=== PATIENT | female | born 1985 | race Caucasian/White ===

== ENCOUNTER 2019-06-04 16:04 | Emergency (ER) | payer OTHER ==
[2019-06-04 17:00] VITALS: BP 153/94; PULSE 79; RESP 18; TEMP 98.2
[2019-06-04] MEDS ORDERED: DIPH,PERTUS(ACELL)TETVAC-LF 0.5 ML VIAL IM ONE (17:42)
[2019-06-04] MEDS ORDERED: KETOROLAC 30 MG/ML 1 ML VIAL IM STA (17:42)
--- NOTE | 2019-06-04 17:42 | ED ---
Head Injury HPI - General Chief complaint: Head Injury Stated complaint: [facility] - head injury Time Seen by Provider: 06/04/19 17:09 Source: patient Mode of arrival: ambulatory Limitations: no limitations - History of Present Illness Initial comments: 34-year-old female presenting for head injury. Patient states she was at work yesterday when she had her head on a machine. She denies machinery falling on her she denies jumping up and hitting the machine. She denies loss of consciousness. Denies anticoagulation use she states she has a small abrasion near her left eye. Patient states she was told by work she had a comfort evaluation. Patient states she has had a slight headache denies dizziness denies vomiting. Denies any neck pain. Patient denies any other areas of injury. Remaining review of systems negative upon arrival patient appears well - Related Data Home Medications Medication Instructions Recorded Confirmed Avaine 1 tab PO DAILY 06/04/19 06/04/19 Cephalexin [Keflex] 500 mg PO Q12HR 06/04/19 06/04/19 Allergies/Adverse reactions: Allergies Allergy/AdvReac Type Severity Reaction Status Date / Time No Known Allergies Allergy Verified 06/04/19 17:22 Review of Systems ROS Statement: Those systems with pertinent positive or pertinent negative responses have been documented in the HPI. ROS Other: All systems not noted in ROS Statement are negative. Past Medical History Past Medical History: No Reported History History of Any Multi-Drug Resistant Organisms: None Reported Past Surgical History: No Surgical Hx Reported Past Psychological History: Anxiety Smoking Status: Current every day smoker Past Alcohol Use History: Occasional Past Drug Use History: None Reported General Exam - General Exam Comments Initial Comments: General: The patient is awake and alert, in no distress, and does not appear acutely ill. Eye: +3 mm pupils are equal, round and reactive to light, extra-ocular movements are intact. No nystagmus. There is normal conjunctiva bilaterally. No signs of icterus. Ears, nose, mouth and throat: There are moist mucous membranes and no oral lesions. Neck: The neck is supple, there is no tenderness or JVD. Cardiovascular: There is a regular rate and rhythm. No murmur, rub or gallop is appreciated. Respiratory: Lungs are clear to auscultation, respirations are non-labored, breath sounds are equal. No wheezes, stridor, rales, or rhonchi. Gastrointestinal: Soft, non-distended, non-tender abdomen without masses or organomegaly noted. There is no rebound or guarding present. Musculoskeletal: Normal ROM, no tenderness. Strength 5/5. Sensation intact. Pulses equal bilaterally 2+. Neurological: A&O x 3. CN II-XII intact, memory intact to immediately, intermediate and skilled nursing recall. Able to follow simple verbal. Able to name a common object (pen). High quality, labial (pa) and lingual (la) speech. Low quality posterior pharynx/larynx (ga) voice sounds. Able to express general knowledge (days in a week). No hemineglect or inattention noted. Finger agnosia (-) and spatially oriented (identified L index finger touched R shoulder with L index finger). Light touch and temperature sensation present over the face, chest, abdomen, back, UE bilaterally, and LE bilaterally. Able to localize point during point localization b/l and extinction. No visible bulk atrophy, hypertro phy, fasciculations, or myoclonus of the UE or LE b/l. Full PROM in UE and LE b/l. Bilateral muscle strength 5/5 for the following muscles: deltoid, biceps, triceps, brachioradialis, wrist extensors/flexor, hip flexor, hip abductors/adductors, hamstrings, quadriceps, feet dorsiflexors/plantar flexors. Finger to nose, finger to the examiners finger, and heel to pérez coordinated and accurate b/l. Coordinated and even demonstration of hand flip, finger to thumb, and toe tap b/l. Gait is coordinated and even in stride with tandem, toe and heel walk. Maintains balance with monopedal stance. (-) Romberg. (-) pronator drift. Skin: Skin is warm and dry and no rashes or lesions are noted. Psychiatric: Cooperative, appropriate mood & affect, normal judgment. Limitations: no limitations Course Vital Signs 06/04/19 16:57 Temperature 98.2 F Pulse Rate 79 Respiratory 18 Rate Blood Pressure 153/94 O2 Sat by Pulse 99 Oximetry Medical Decision Making - Medical Decision Making Well-appearing 34-year-old female presenting for headache after head injury. No focal neurological deficits. No vomiting. Patient denies this being the worst headache of her life. Patient small abrasion above the left eye. Tetanus updated. Patient provided Toradol emergency department for sent back treatment. At this time feel patient is stable for discharge with concussion protocols. Return parameters as well as importance of outpatient follow-up are discussed. Patient was discharged appearing well. Disposition Clinical Impression: Head injury, Concussion, Abrasion Disposition: HOME SELF-CARE Condition: Good Instructions (If sedation given, give patient instructions): Concussion (ED) Additional Instructions: Please use medication as discussed. Please follow-up with family doctor in the next 2 days, for re-evaluation. No contact sports, or activity with increased risk of head injury during time of symptoms, and until cleared by medical provider. Please return to emergency room if the symptoms increase or worsen or for any other concerns. Is patient prescribed a controlled substance at d/c from ED?: No Referrals: Raoul Nicole MD [Primary Care Provider] - 1-2 days Time of Disposition: 17:41
== END 2019-06-04 19:31 | disposition home or self-care (01) ==
LOC: EC 16:04
DX: S06.0X0A Concussion without loss of consciousness, initial encounter (principal); S00.81XA Abrasion of other part of head, initial encounter; F17.200 Nicotine dependence, unspecified, uncomplicated; Z79.3 Long term (current) use of hormonal contraceptives; Z23 Encounter for immunization; W22.8XXA Striking against or struck by other objects, initial encounter; Y92.69 Other specified industrial and construction area as the place of occurrence of the external cause; Y99.0 Civilian activity done for income or pay
CPT/HCPCS: 90715; 99283; 90471; 96372; J1885

== ENCOUNTER 2019-11-14 14:42 | Emergency (ER) | payer OTHER ==
[2019-11-14 15:35] VITALS: TEMP 98
[2019-11-14] MEDS ORDERED: ACET/COD 300 MG/30 MG STARTER PACK 6 TAB BTL PO STA (16:04)
--- NOTE | 2019-11-14 16:29 | XR ---
EXAMINATION TYPE: PA chest and right rib series, 5 views DATE OF EXAM: 11/14/2019 COMPARISON: None HISTORY: 34-year-old female right rib pain after coughing TECHNIQUE: 5 views FINDINGS: The cardiomediastinal silhouette, aorta, and pulmonary vasculature are within normal limits. Hazy low er lung densities related to overlying soft tissue. Otherwise, lungs and pleural spaces are clear. No displaced right rib fracture. IMPRESSION: No acute cardiopulmonary process. No displaced right rib fracture.
--- NOTE | 2019-11-14 17:45 | ED ---
Abdominal Pain HPI - General Source: patient Mode of arrival: ambulatory Limitations: no limitations <Marlene Snider - Last Filed: 11/14/19 23:47> <Deborah Vargas - Last Filed: 11/17/19 21:32> - General Chief Complaint: Abdominal Pain Stated Complaint: right side pain Time Seen by Provider: 11/14/19 15:55 - History of Present Illness Initial Comments: 34-year-old female presenting today for chief complaint of right-sided rib pain x 5 days. Patient states she has had right-sided rib pain for the past 5 days. She states it began after she had been coughing during the [employer] as work. She states she has pain with inspiration in a particular region of the right ribs that she is able to push on and reproduce the pain. Patient was evaluated at [facility] initially however states the pain persisted today and she does not know what to take for the pain. Patient denies any shortness of breath she denies any substernal chest pain. Patient denies any nausea jaw pain and arm pain or epigastric abdominal pain. Patient denies any hemoptysis leg swelling or recent travel or surgery. Patient admits to OCP use. Remaining ROS (-). (Marlene Snider) - Related Data Home Medications Medication Instructions Recorded Confirmed Avaine 1 tab PO DAILY 06/04/19 06/04/19 Cephalexin [Keflex] 500 mg PO Q12HR 06/04/19 06/04/19 Allergies Allergy/AdvReac Type Severity Reaction Status Date / Time No Known Allergies Allergy Verified 06/04/19 17:22 Review of Systems ROS Other: All systems not noted in ROS Statement are negative. <Marlene Snider - Last Filed: 11/14/19 23:47> ROS Other: All systems not noted in ROS Statement are negative. <Deborah Vargas - Last Filed: 11/17/19 21:32> ROS Statement: Those systems with pertinent positive or pertinent negative responses have been documented in the HPI. Past Medical History Past Medical History: No Reported History History of Any Multi-Drug Resistant Organisms: None Reported Past Surgical History: No Surgical Hx Reported Past Psychological History: Anxiety Smoking Status: Current every day smoker Past Alcohol Use History: Occasional Past Drug Use History: None Reported <Marlene Snider - Last Filed: 11/14/19 23:47> General Exam Limitations: no limitations <Marlene Snider - Last Filed: 11/14/19 23:47> - General Exam Comments Initial Comments: General: The patient is awake and alert, in no distress Eye: +3 mm pupils are equal, round and reactive to light, extra-ocular movements are intact. No nystagmus. There is normal conjunctiva bilaterally. No signs of icterus. Ears, nose, mouth and throat: There are moist mucous membranes and no oral lesions. Neck: The neck is supple, there is no tenderness or JVD. Cardiovascular: There is a regular rate and rhythm. No murmur, rub or gallop is appreciated. Respiratory: Lungs are clear to auscultation, respirations are non-labored, breath sounds are equal. No wheezes, stridor, rales, or rhonchi. Gastrointestinal: Soft, non-distended, non-tender abdomen without masses or organomegaly noted. There is no rebound or guarding present. Musculoskeletal: Patient is tender to palpation over the right eighth rib midline increases with rotation of the trunk. Normal ROM, no tenderness. Strength 5/5. Sensation intact. Radial pulses equal bilaterally 2+. Neurological: A&O x 3. CN II-XII intact grossly, There are no obvious motor or sensory deficits. Coordination appears grossly intact. Speech is normal. Skin: Skin is warm and dry and no rashes or lesions are noted. No LE edema or calf swellling. Psychiatric: Cooperative, appropriate mood & affect, normal judgment. (Marlene Snider) Course Vital Signs 11/14/19 11/14/19 15:33 17:50 Temperature 98.0 F 98.0 F Pulse Rate 77 70 Respiratory 17 18 Rate Blood Pressure 147/93 140/89 O2 Sat by Pulse 99 100 Oximetry Medical Decision Making <Marlene Snider - Last Filed: 11/14/19 23:47> <Deborah Vargas - Last Filed: 11/17/19 21:32> - Medical Decision Making 34-year-old female presenting today for chief complaint of pain in the right rib. Reproducible on the eighth rib patient states began after coughing fit. Patient evaluated any other hospital presents today for persistent pain denies shortness of breath. Patient is not hypoxic nor tachycardic. Patient does take OCPs d-dimer obtained revealing no elevation. Chest x-ray revealed no displaced rib fractures. EKG no acute findings. The pain does not appear cardiac related. Patient requesting discharge on multiple occasion. At this time do feel patient is stable for discharge with outpatient primary care follow-up for a small intercostal strain. I discussed the appropriate treatment patient provided Tylenol 3 starter pack and patient was discharged appearing well, Case discussed with Dr. Vargas (Marlene Snider) I was available for consultation in the emergency department. The history and physical exam were done by the midlevel provider. I was consulted for this patients care. I reviewed the case with the midlevel provider and based on their presentation of the patient, I agree with the assessment, medical decision making and plan of care as documented. Chart was dictated using [employer] dictation software. Attempts were made to correct any dictation errors however some typographical errors may persist. (Deborah Vargas) - Lab Data Lab Results 11/14/19 Range/Units 17:15 D-Dimer 0.39 (<0.60) mg/L FEU Disposition Is patient prescribed a controlled substance at d/c from ED?: No Time of Disposition: 17:45 <Marlene Snider - Last Filed: 11/14/19 23:47> <Deborah Vargas - Last Filed: 11/17/19 21:32> Clinical Impression: Intercostal muscle pain Disposition: HOME SELF-CARE Condition: Good Instructions (If sedation given, give patient instructions): Muscle Strain (DC) Additional Instructions: Please use medication as discussed. Please follow-up with family doctor in the next 2 days. Please return to emergency room if the symptoms increase or worsen or for any other concerns. Referrals: Raoul Nicole MD [Primary Care Provider] - 1-2 days
[2019-11-14 17:52] VITALS: BP 140/89; PULSE 70; RESP 18
== END 2019-11-14 17:50 | disposition home or self-care (01) ==
LOC: EC 14:42
DX: M79.18 Myalgia, other site (principal); R07.81 Pleurodynia; R05 Cough; F17.200 Nicotine dependence, unspecified, uncomplicated; Z79.3 Long term (current) use of hormonal contraceptives
CPT/HCPCS: 36415; 85379; 93005; 99284

== ENCOUNTER 2022-03-13 20:03 | Emergency (ER) | payer OTHER ==
[2022-03-13 21:27] VITALS: TEMP 98.2
--- NOTE | 2022-03-13 23:22 | ED ---
Skin/Abscess/FB HPI - General Chief complaint: Skin/Abscess/Foreign Body Stated complaint: Rash Time Seen by Provider: 03/13/22 23:02 Source: patient, RN notes reviewed Mode of arrival: ambulatory - History of Present Illness Initial comments: This is a pleasant 37-year-old female who works at the local [employer]. Patient states she started getting a rash several days ago. Patient states it started on her right arm but now involves her lower extremities. Patient has a few areas of rash on the left lower extremities. This itches. Patient had a few spots the lateral aspect of her right thigh which are itching. Unfortunately the rash is not getting better with oral corticosteroids and topical antifungals. Patient was seen in urgent care and by her regular physician who thought this was fungal related. Patient states that the area on her right thigh and now has developed into an erythematous circular area. She states it was initially a few dots of skin irritation. Patient does not recall any exposures. Does not recall any bites. Patient feels well otherwise. States she did have some symptoms of a common cold. Days ago. No headache, no fever or chills, no changes in vision or hearing, no sore throat or difficulty with speech, no neck pain, no chest pain or shortness of breath, no abdominal pain, no nausea or vomiting, no changes in urination or bowel movements, no numbness or tingling, no extremity pain MD complaint: rash - Related Data Home Medications Medication Instructions Recorded Confirmed Avaine 1 tab PO DAILY 06/04/19 06/04/19 Cephalexin [Keflex] 500 mg PO Q12HR 06/04/19 06/04/19 Previous Rx's Medication Instructions Recorded Clotrimazole/Betamethasone Dip 1 applic TOPICAL BID #45 gm 03/14/22 [Lotrisone Cream] Doxycycline [Vibramycin] 100 mg PO BID 1 Days #28 each 03/14/22 diphenhydrAMINE [Benadryl] 25 mg PO QID PRN #24 capsule 03/14/22 Allergies Allergy/AdvReac Type Severity Reaction Status Date / Time No Known Allergies Allergy Verified 03/13/22 21:27 Review of Systems ROS Statement: Those systems with pertinent positive or pertinent negative responses have been documented in the HPI. ROS Other: All systems not noted in ROS Statement are negative. Past Medical History Past Medical History: Hypertension History of Any Multi-Drug Resistant Organisms: None Reported Past Surgical History: No Surgical Hx Reported Past Psychological History: Anxiety Smoking Status: Current every day smoker Past Alcohol Use History: Occasional Past Drug Use History: None Reported General Exam General appearance: alert, in no apparent distress Head exam: Present: atraumatic, normocephalic, normal inspection Eye exam: Present: normal appearance, PERRL, EOMI. Absent: scleral icterus, conjunctival injection, periorbital swelling ENT exam: Present: normal exam, mucous membranes moist Neck exam: Present: normal inspection. Absent: tenderness, meningismus, lymphadenopathy Respiratory exam: Present: normal lung sounds bilaterally. Absent: respiratory distress, wheezes, rales, rhonchi, stridor Cardiovascular Exam: Present: regular rate, normal rhythm, normal heart sounds. Absent: systolic murmur, diastolic murmur, rubs, gallop, clicks GI/Abdominal exam: Present: soft, normal bowel sounds. Absent: distended, tenderness, guarding, rebound, rigid Extremities exam: Present: normal inspection, full ROM, normal capillary refill. Absent: tenderness, pedal edema, joint swelling, calf tenderness Back exam: Present: normal inspection Neurological exam: Present: alert, oriented X3, CN II-XII intact Psychiatric exam: Present: normal affect, normal mood Skin exam: Present: warm, dry, intact, rash, erythema, other (Patient has a few macular/scaling areas to her left leg and a few erythematous macules to the lateral aspect of her left ankle. No evidence of secondary infection. No lymphangitis. Patient has a circular area of erythema which is approximately 9 cm in diameter to the lateral aspect of her right t). Absent: normal color, cyanosis, diaphoretic, urticaria Course Vital Signs 03/13/22 21:22 Temperature 98.2 F Pulse Rate 89 Respiratory 19 Rate Blood Pressure 113/74 O2 Sat by Pulse 98 Oximetry Medical Decision Making - Medical Decision Making Patient presents with a recurrent rash to the lower extremities which is itchy. Patient has area of erythema surrounding the rash on the lateral aspect of her right thigh. Does not definitively look like erythema migrans. Elevated anion a Lyme test. Possible minimal secondary cellulitis. We'll treat with antibiotics. I'm going to go ahead and give doxycycline and have the patient follow-up with her regular physician. Patient will be given follow-up information for dermatology. Patient's white blood cell count was minimally elevated. Patient did not appear to be ill or toxic. Return about parents discussed in detail. We'll have her continue antihistamines for itching. She can continue topical corticosteroids to the other areas of rash on her left leg. Patient understands treatment plan, all questions answered The case was discussed in detail with ED attending physician. Presentation, findings, treatment plan discussed in detail. Supervising physician is Dr. Sherwood - Lab Data Result diagrams: 03/13/22 23:30 03/13/22 23:30 Lab Results 03/13/22 03/13/22 03/13/22 Range/Units 23:30 23:30 23:30 WBC 12.6 H (3.8-10.6) k/uL RBC 4.84 (3.80-5.40) m/uL Hgb 16.8 H (11.4-16.0) gm/dL Hct 48.9 H (34.0-46.0) % MCV 101.2 H (80.0-100.0) fL MCH 34.7 (25.0-35.0) pg MCHC 34.3 (31.0-37.0) g/dL RDW 13.5 (11.5-15.5) % Plt Count 256 (150-450) k/uL MPV 6.8 Neutrophils % 85 % Lymphocytes % 8 % Monocytes % 4 % Eosinophils % 1 % Basophils % 0 % Neutrophils # 10.7 H (1.3-7.7) k/uL Lymphocytes # 1.1 (1.0-4.8) k/uL Monocytes # 0.5 (0-1.0) k/uL Eosinophils # 0.1 (0-0.7) k/uL Basophils # 0.0 (0-0.2) k/uL Macrocytosis Slight Sodium 134 L (137-145) mmol/L Potassium 4.0 (3.5-5.1) mmol/L Chloride 98 (98-107) mmol/L Carbon Dioxide 30 (22-30) mmol/L Anion Gap 6 mmol/L BUN 9 (7-17) mg/dL Creatinine 0.75 (0.52-1.04) mg/dL Est GFR (CKD-EPI)AfAm >90 (>60 ml/min/1.73 sqM) Est GFR (CKD-EPI)NonAf >90 (>60 ml/min/1.73 sqM) Glucose 119 H (74-99) mg/dL Calcium 8.6 (8.4-10.2) mg/dL Total Bilirubin 0.6 (0.2-1.3) mg/dL AST 33 (14-36) U/L ALT 23 (4-34) U/L Alkaline Phosphatase 65 (38-126) U/L C-Reactive Protein 5.5 H (<1.0) mg/dL Total Protein 7.1 (6.3-8.2) g/dL Albumin 3.9 (3.5-5.0) g/dL Urine HCG, Qual Not Detected (Not Detectd) Coronavirus (PCR) (Not Detectd) 03/13/22 Range/Units 23:30 WBC (3.8-10.6) k/uL RBC (3.80-5.40) m/uL Hgb (11.4-16.0) gm/dL Hct (34.0-46.0) % MCV (80.0-100.0) fL MCH (25.0-35.0) pg MCHC (31.0-37.0) g/dL RDW (11.5-15.5) % Plt Count (150-450) k/uL MPV Neutrophils % % Lymphocytes % % Monocytes % % Eosinophils % % Basophils % % Neutrophils # (1.3-7.7) k/uL Lymphocytes # (1.0-4.8) k/uL Monocytes # (0-1.0) k/uL Eosinophils # (0-0.7) k/uL Basophils # (0-0.2) k/uL Macrocytosis Sodium (137-145) mmol/L Potassium (3.5-5.1) mmol/L Chloride (98-107) mmol/L Carbon Dioxide (22-30) mmol/L Anion Gap mmol/L BUN (7-17) mg/dL Creatinine (0.52-1.04) mg/dL Est GFR (CKD-EPI)AfAm (>60 ml/min/1.73 sqM) Est GFR (CKD-EPI)NonAf (>60 ml/min/1.73 sqM) Glucose (74-99) mg/dL Calcium (8.4-10.2) mg/dL Total Bilirubin (0.2-1.3) mg/dL AST (14-36) U/L ALT (4-34) U/L Alkaline Phosphatase (38-126) U/L C-Reactive Protein (<1.0) mg/dL Total Protein (6.3-8.2) g/dL Albumin (3.5-5.0) g/dL Urine HCG, Qual (Not Detectd) Coronavirus (PCR) Not Detected (Not Detectd) Disposition Clinical Impression: Cellulitis of right thigh, Rash and nonspecific skin eruption Disposition: HOME SELF-CARE Instructions (If sedation given, give patient instructions): Cellulitis (ED), Dermatitis (ED) Additional Instructions: Take antibiotic as directed. Apply the prescribed cream to the areas of rash on the left leg. 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 Follow-up with your regular physician as directed. Return to the ER immediately if any symptoms worsen, new symptoms arise, or any other problems develop. Prescriptions: Doxycycline [Vibramycin] 100 mg PO BID 1 Days #28 each Is patient prescribed a controlled substance at d/c from ED?: No Referrals: Raoul Nicole MD [Primary Care Provider] - 1-2 days Gabriela Dougherty MD [STAFF PHYSICIAN] - 03/17/22 Time of Disposition: 00:48
--- NOTE | 2022-03-13 23:27 | XR ---
EXAMINATION TYPE: XR KUB DATE OF EXAM: 03/13/2022 COMPARISON: NONE HISTORY: Abdominal pain TECHNIQUE: 2 views Upright FINDINGS: The bowel gas pattern is normal. No sign of intestinal obstruction or pneumoperitoneum. Fec al pattern is normal. No evidence of a mass. There are no pathologic calcifications on the kidneys. L irma bases are clear. There is no pleural effusion. IMPRESSION: Nonacute abdomen.
[2022-03-13 23:57] LABS: Basophils % (A) 0 %; Eosinophils # (A) 0.1 k/uL (0-0.7); Eosinophils % (A) 1 %; HCT 48.9 % (34.0-46.0); HGB 16.8 gm/dL (11.4-16.0); Lymphocytes # (A) 1.1 k/uL (1.0-4.8); Lymphocytes % (A) 8 %; MCH 34.7 pg (25.0-35.0); MCHC 34.3 g/dL (31.0-37.0); MCV 101.2 fL (80.0-100.0); Macrocytosis Slight; Mean Platelet Volume 6.8; Monocytes # (A) 0.5 k/uL (0-1.0); Monocytes % (A) 4 %; Neutrophils # (A) 10.7 k/uL (1.3-7.7); Neutrophils % (A) 85 %; Platelet Count 256 k/uL (150-450); RBC 4.84 m/uL (3.80-5.40); RDW 13.5 % (11.5-15.5); WBC 12.6 k/uL (3.8-10.6)
[2022-03-14 00:19] LABS: ALT 23 U/L (4-34); AST 33 U/L (14-36); African American GFR (CKD) >90 (>60 ml/min/1.73 sqM); Albumin 3.9 g/dL (3.5-5.0); Alkaline Phosphatase 65 U/L (38-126); Anion Gap 6 mmol/L; Blood Urea Nitrogen 9 mg/dL (7-17); C Reactive Protein 5.5 mg/dL (<1.0); Calcium 8.6 mg/dL (8.4-10.2); Carbon Dioxide 30 mmol/L (22-30); Chloride 98 mmol/L (98-107); Glucose 119 mg/dL (74-99); Non-African American GFR(CKD) >90 (>60 ml/min/1.73 sqM); Sodium 134 mmol/L (137-145); Total Bilirubin 0.6 mg/dL (0.2-1.3); Total Protein 7.1 g/dL (6.3-8.2)
[2022-03-14] MEDS ORDERED: DOXYCYCLINE 100 MG CAP PO STA (00:41)
[2022-03-14 01:28] LABS: Erythrocyte Sedimentation Rate 18 mm/hr (0-20)
[2022-03-14 01:38] VITALS: BP 110/75; PULSE 82; RESP 18
== END 2022-03-14 01:10 | disposition home or self-care (01) ==
LOC: EC 20:03
DX: L03.115 Cellulitis of right lower limb (principal); R21 Rash and other nonspecific skin eruption; I10 Essential (primary) hypertension; F17.200 Nicotine dependence, unspecified, uncomplicated; Z20.822 Contact with and (suspected) exposure to COVID-19
CPT/HCPCS: 36415; 74018; 80053; 81025; 85025; 85652; 86140; 86618; 87635; 99284

== ENCOUNTER → 2023-06-14 | Outpatient (CLI) | payer OTHER ==
--- NOTE | 2023-06-14 14:21 | XR ---
EXAMINATION TYPE: XR knee complete RT DATE OF EXAM: 06/14/2023 COMPARISON: NONE HISTORY: Pain TECHNIQUE: Three views are submitted. FINDINGS: Joint spaces are preserved. Osseous structures are intact. No acute fracture seen. Trace amount of fluid in the suprapatellar bursa. IMPRESSION: 1. No acute fracture or dislocation.
== END | disposition home or self-care (01) ==
LOC: RADXRMAIN 13:54
PROVIDERS: ATTEND Emergency Medicine
DX: S80.01XA Contusion of right knee, initial encounter (principal); X58.XXXA Exposure to other specified factors, initial encounter